=== PATIENT | male | born 1965 | race Two or more races ===

== ENCOUNTER 2017-05-11 00:39 | Emergency (ER) | payer SELFPAY ==
[~2017-05-11] VITALS: Ht 170.2 cm; Wt 97.0 kg
[~2017-05-11 00:39] MED LIST: ASPI325T4 PO; HYDR-762 PO
[2017-05-11 00:44] VITALS: Ht 170.2 cm; Wt 97.0 kg
== END 2017-05-11 03:55 | disposition left against medical advice (07) ==
LOC: FTE 00:39
DX: Z53.21 Procedure and treatment not carried out due to patient leaving prior to being seen by health care provider (principal)